=== PATIENT | female | born 1955 | race Caucasian/White ===

== ENCOUNTER 2021-02-19 18:09 | Observation (INO) | payer BC, OTHER ==
[2021-02-19 20:29] LABS: BASO % 0.9 % (0-2.0); EOS % 1.2 % (0-4.5); HEMATOCRIT 37.4 % (32.4-45.2); HEMOGLOBIN 12.8 GM/dL (10.7-15.3); LYMPH % 14.9 % (8-40); MCH 27.9 pg (25.7-33.7); MCHC 34.3 g/dl (32.0-36.0); MEAN CELL VOLUME 81.3 fl (80-96); MEAN PLT VOLUME 8.3 fl (7.5-11.1); PLATELET COUNT 270 10^3/uL (134-434); RDW 13.8 % (11.6-15.6); WHITE BLOOD COUNT 11.3 K/mm3 (4.0-10.0)
[2021-02-19 20:31] LABS: CHLORIDE 107 mmol/L (98-107); SODIUM 139 mmol/L (136-145)
[2021-02-19 20:34] LABS: ALBUMIN 4.1 g/dl (3.4-5.0); ANION GAP 7 MMOL/L (8-16); CO2 26 mmol/L (21-32); GLUCOSE,RANDOM 194 mg/dL (74-106)
[2021-02-19 20:35] LABS: BLOOD UREA NITROGEN 18.4 mg/dL (7-18)
[2021-02-19 20:37] LABS: SGPT/ALT 28 U/L (13-61)
[2021-02-19 20:38] LABS: INR 1.38 (0.83-1.09); PROTHROMBIN TIME (PATIENT) 16.6 SEC (9.7-13.0); SGOT/AST 29 U/L (15-37)
[2021-02-19 20:39] LABS: BILIRUBIN,TOTAL 0.6 mg/dL (0.2-1); TOT PROT 7.6 g/dl (6.4-8.2)
[2021-02-19 20:40] LABS: ACTIVATED PTT 44.6 SECONDS (25.2-36.5); ALK PHOS 124 U/L (45-117)
[2021-02-20] MEDS ORDERED: ASPIRIN 81 MG CHEWABLE TABLETS PO ONE (00:12)
[2021-02-20] MEDS ORDERED: ASPIRIN 81 MG CHEWABLE TABLETS ONE (00:23)
[2021-02-20] MEDS ORDERED: APIXABAN 5 MG TABLET ONE ×3 (00:23→22:33)
[2021-02-20] MEDS: APIXABAN 5 MG TABLET PO SCH ×3 (00:26→22:46)
[2021-02-20 01:03] LABS: URINE APPEARANCE CLEAR; URINE BILIRUBIN NEGATIVE (NEGATIVE); URINE COLOR YELLOW; URINE GLUCOSE (UA) NEGATIVE (NEGATIVE); URINE KETONE NEGATIVE (NEGATIVE); URINE LEUK ESTERASE NEGATIVE (NEGATIVE); URINE NITRITE NEGATIVE (NEGATIVE); URINE PROTEIN NEGATIVE (NEGATIVE); URINE UROBILINOGEN 0.2 mg/dL (0.2-1.0)
[2021-02-20] MEDS ORDERED: SODIUM CHLORIDE 1,000 ML IV SCH (03:15)
[2021-02-20] MEDS ORDERED: ATORVASTATIN CA 40 MG TABLET (FP) ONE ×2 (05:53→22:34)
[2021-02-20 05:56] LABS: COCAINE, UR NEGATIVE (NEGATIVE); METHADONE, UR NEGATIVE (NEGATIVE); URINE BENZODIAZEPINES NEGATIVE (NEGATIVE)
[2021-02-20 05:57] LABS: OPIATES, URI NEGATIVE (NEGATIVE); PHENCYCLIDINE,URINE NEGATIVE (NEGATIVE); URINE AMPHETAMINES NEGATIVE (NEGATIVE); URINE BARBITURATES NEGATIVE (NEGATIVE)
[2021-02-20] MEDS: ATORVASTATIN CA 40 MG TABLET (FP) PO SCH ×2 (05:58→22:46)
[2021-02-20 07:01] LABS: HEMATOCRIT 35.7 % (32.4-45.2); HEMOGLOBIN 12.5 GM/dL (10.7-15.3); MCH 28.5 pg (25.7-33.7); MCHC 34.9 g/dl (32.0-36.0); MEAN CELL VOLUME 81.4 fl (80-96); MEAN PLT VOLUME 8.3 fl (7.5-11.1); PLATELET COUNT 239 10^3/uL (134-434); RBC 4.39 M/mm3 (3.60-5.2); RDW 13.9 % (11.6-15.6); WHITE BLOOD COUNT 6.9 K/mm3 (4.0-10.0)
[2021-02-20 07:17] LABS: ALBUMIN 3.7 g/dl (3.4-5.0); CALCIUM 8.6 mg/dL (8.5-10.1)
[2021-02-20 07:18] LABS: BLOOD UREA NITROGEN 16.2 mg/dL (7-18); MAGNESIUM 2.1 mg/dL (1.8-2.4)
[2021-02-20 07:20] LABS: CHOLESTEROL 96 mg/dL (50-200); TRIGLYCERIDES 76 mg/dL (0-150)
[2021-02-20 07:21] LABS: CREATININE 0.9 mg/dL (0.55-1.3); LDL CHOLESTEROL (ONLY SJRH) 35 mg/dL (5-100); PHOSPHOROUS 4.1 mg/dL (2.5-4.9)
[2021-02-20 07:22] LABS: BILIRUBIN,TOTAL 0.7 mg/dL (0.2-1); TOT PROT 6.7 g/dl (6.4-8.2)
[2021-02-20 07:23] LABS: HDL CHOLESTEROL 55 mg/dL (40-60)
[2021-02-20] MEDS ORDERED: PT OWN MED DRAWER 7, Y5N ONE ×2 (07:40→11:17)
[2021-02-20] MEDS: INSULIN SLIDING SCALE (NOVOLOG) 1 VIAL SQ SCH ×4 (07:45→23:00)
[2021-02-20] MEDS ORDERED: ENOXAPARIN NA (PORCINE) 40 MG/0.4 ML DISP.SYRIN SQ SCH (10:00)
[2021-02-20] MEDS ORDERED: CHLORTHALIDONE 25 MG TABLET PO SCH (10:00)
[2021-02-20] MEDS ORDERED: METOPROLOL TARTRATE 50 MG TABLET (FP) ONE (11:17)
[2021-02-20] MEDS: METOPROLOL TARTRATE 50 MG TABLET (FP) PO SCH (11:56)
[2021-02-20] MEDS: CHLORTHALIDONE 25 MG TABLET PO SCH (11:56)
[2021-02-20] MEDS ORDERED: LISINOPRIL 20 MG TABLET ONE (22:34)
[2021-02-20] MEDS: LISINOPRIL 20 MG TABLET PO SCH (22:50)
[2021-02-21 02:07] VITALS: BMI 38.0
[2021-02-21] MEDS ORDERED: PT OWN MED DRAWER 7, Y5N ONE (06:09)
[2021-02-21] MEDS: CHLORTHALIDONE 25 MG TABLET PO SCH (06:45)
[2021-02-21] MEDS: INSULIN SLIDING SCALE (NOVOLOG) 1 VIAL SQ SCH ×4 (06:45→21:35)
[2021-02-21] MEDS: APIXABAN 5 MG TABLET PO SCH ×2 (09:06→21:12)
[2021-02-21] MEDS: METOPROLOL TARTRATE 50 MG TABLET (FP) PO SCH (09:06)
[2021-02-21] MEDS: LISINOPRIL 20 MG TABLET PO SCH (21:13)
[2021-02-21] MEDS: ATORVASTATIN CA 40 MG TABLET (FP) PO SCH (21:13)
[2021-02-22] MEDS ORDERED: PT OWN MED DRAWER 7, Y5N ONE ×2 (05:39→08:56)
[2021-02-22] MEDS: INSULIN SLIDING SCALE (NOVOLOG) 1 VIAL SQ SCH (06:37)
[2021-02-22] MEDS: CHLORTHALIDONE 25 MG TABLET PO SCH (06:38)
[2021-02-22] MEDS: APIXABAN 5 MG TABLET PO SCH (09:22)
[2021-02-22 10:36] VITALS: BP 118/68; PULSE 73; TEMP 97.4
== END 2021-02-22 12:01 | disposition home or self-care (01) ==
LOC: JER 18:09 → UNDOADMOB 02-20 00:04 → JERBED 02-20 00:04 → INTOOBSV 02-20 00:04 → JERBED 02-20 00:07 → J4W 02-21 01:59
PROVIDERS: ADMIT Internal Medicine; ATTEND Internal Medicine
PROC: 3E0337Z Introduction of Electrolytic and Water Balance Substance into Peripheral Vein, Percutaneous Approach (ICD-10-PCS; principal; 2021-02-20)
DX: I48.0 Paroxysmal atrial fibrillation (principal); R07.9 Chest pain, unspecified; R51.9 Headache, unspecified; I10 Essential (primary) hypertension; E78.00 Pure hypercholesterolemia, unspecified; E11.9 Type 2 diabetes mellitus without complications
CPT/HCPCS: 36415; 70450-TC; 71046-TC-FY; 74177-TC; 80053; 80061; 80307; 81003; 82550; 82553; 82962; 83735; 84100; 84443; 84484; 85025; 85027; 85610; 85730; 93005; 93010; 93306-TC; 93880-TC; 96365; 99285-25; C9803; G0378; Q9967; U0003; U0005

== ENCOUNTER 2024-04-03 01:11 | Emergency (ER) | payer BC, OTHER ==
[2024-04-03 01:22] VITALS: BP 160/83; PULSE 72; RESP 18; TEMP 98.1; BMI 32.2
[2024-04-03] MEDS ORDERED: ACETAMINOPHEN 325 MG TABLET (FP) ONE (02:41)
[2024-04-03] MEDS: ACETAMINOPHEN 325 MG TABLET (FP) PO ONE (02:45)
[2024-04-03 03:17] LABS: BASO % 0.9 % (0-2.0); EOS % 0.7 % (0-4.5); HEMATOCRIT 38.7 % (32.4-45.2); HEMOGLOBIN 12.9 GM/dL (10.7-15.3); LYMPH % 25.5 % (8-40); MCH 27.7 pg (25.7-33.7); MCHC 33.2 g/dl (32.0-36.0); MEAN CELL VOLUME 83.4 fl (80-96); MEAN PLT VOLUME 7.8 fl (7.5-11.1); MONO % 8.3 % (3.8-10.2); NEUT % 64.6 % (42.8-82.8); PLATELET COUNT 260 10^3/uL (134-434); RBC 4.65 M/mm3 (3.60-5.2); RDW 15.3 % (11.6-15.6); WHITE BLOOD COUNT 7.2 K/mm3 (4.0-10.0)
[2024-04-03] MEDS ORDERED: LIDOCAINE 4% PATCH TP ONE (03:20)
[2024-04-03] MEDS: LIDOCAINE 5% TOPICAL PATCH TP ONE (03:26)
[2024-04-03 03:37] LABS: INR 1.5 (0.83-1.09); PROTHROMBIN TIME (PATIENT) 16.8 SEC (9.7-13.0)
[2024-04-03 03:40] LABS: ACTIVATED PTT 51.5 SECONDS (25.2-36.5)
[2024-04-03 03:41] LABS: POTASSIUM 4.3 mmol/L (3.5-5.1)
[2024-04-03 03:43] LABS: CALCIUM 9.6 mg/dL (8.5-10.1)
[2024-04-03 03:44] LABS: BLOOD UREA NITROGEN 16.8 mg/dL (7-18)
[2024-04-03 03:49] LABS: BILIRUBIN,TOTAL 0.6 mg/dL (0.2-1); TOT PROT 7.5 g/dl (6.4-8.2)
[2024-04-03] MEDS: IBUPROFEN 400 MG TABLET (FP) PO ONE (04:35)
[2024-04-03] MEDS ORDERED: KETOROLAC TROMETHAMINE 30 MG/1 ML VIAL ONE (04:36)
[2024-04-03] MEDS: KETOROLAC TROMETHAMINE 30 MG/1 ML VIAL IVPUSH ONE (04:42)
[2024-04-03] MEDS ORDERED: LIDOCAINE PATCH REMOVAL MC ONE (15:00)
== END 2024-04-03 04:48 | disposition home or self-care (01) ==
LOC: JER 01:11
PROC: 3E0333Z Introduction of Anti-inflammatory into Peripheral Vein, Percutaneous Approach (ICD-10-PCS; principal; 2024-04-03)
DX: M17.11 Unilateral primary osteoarthritis, right knee (principal); M79.661 Pain in right lower leg
CPT/HCPCS: 36415; 73562-TC-RT-FY; 80053; 85025; 85610; 85730; 99284-25